=== PATIENT | female | born 1960 | race African-American/Black ===

== ENCOUNTER → 2016-10-16 | Outpatient (CLI) | payer OTHER ==
--- NOTE | ~2016-10-16 | CR169 ---
[facility] A Service of [facility] RADIOLOGY TEXT RESULTS PATIENT: IFEOMA WHITE LOCATION: [facility] : 64 UNIT #: [id number] AGE: [address]: TORIOT CHÁVEZ APRN SEX: F ORDER DR: [id number] [facility] [address] [place], [place] [address] [id number] O MR#: [id number] Acc #: [id number] NAME: IFEOMA WHITE : 1960 SEX: F STUDY DATE/TIME: 10/16/2016 13:27 UNIT: [facility] ROOM: STUDY DESCRIPTION: CR Knee 2 Views Lt Attending Physician: Torito Chávez Aprn Referring Physician: Torito Chávez Aprn Ordering Physician: Torito Chávez Aprn Primary Care Physician: Torito Chávez Aprn MEDICAL IMAGING REPORT This report is preliminary unless electronic signature is present EXAM Left knee INDICATIONS Left knee pain. Anterior knee pain for 2 months. Fall. FINDINGS 2 views of the left knee without comparison. There is no acute fracture, dislocation, or effusion. Joint spaces are normal. IMPRESSION Normal left knee. Dictated by... Mark Johnson M.D. THIS IS AN ELECTRONICALLY VERIFIED REPORT Mark Johnson M.D. at 10/17/2016 3:45 PM Phill TD: 10/17/2016 12:20 JOB #: [id number] MEDICAL IMAGING REPORT Page 1 of 1 COPY
== END | disposition home or self-care (01) ==
LOC: CRAD 13:12
DX: M25.562 Pain in left knee (principal)
CPT/HCPCS: 73560